=== PATIENT | male | born 1960 | race Caucasian/White ===

== ENCOUNTER 2020-08-14 13:26 | Emergency (ER) | payer MEDICARE ==
[~2020-08-14] VITALS: Ht 180.3 cm; Wt 106.0 kg
[~2020-08-14 13:26] MED LIST: DOCU-131 PO; DULO20CA18 PO; GABA-827 PO; HYDR25CA94 PO; MELA5TAB14 PO; METH-639 PO
[2020-08-14] MEDS ORDERED: DICL75TA3 PO (13:49)
--- NOTE | 2020-08-14 13:53 | NUR ---
PT AMBULATORY TO ROOM FROM TRIAGE. PT CHANGED INTO GOWN, MONITORS IN PLACE. PT DENIES SI/HI AT THIS TIME. PT STATES "I JUST FEEL NOT RIGHT RIGHT NOW."
--- NOTE | 2020-08-14 14:05 | NUR ---
U CONTACTED, CONFIRMED THERE IS A BED WAITING FOR PT. ERP AWARE.
[2020-08-14] MEDS ORDERED: KETOROLAC 30 MG/1 ML ONE (14:08)
[2020-08-14] MEDS ORDERED: ACETAMINOPHEN 325 MG TABLET ONE (14:09)
--- NOTE | 2020-08-14 14:20 | NUR ---
PT AMBULATORY TO BR WITH UPRIGHT STEADY GAIT
[2020-08-14 14:21] LABS: BASOPHILS % (AUTO) 1 % (0-1); EOSINOPHILS % (AUTO) 2 % (1-7); LYMPHOCYTES % (AUTO) 37 % (22-44); MEAN CORPUSCULAR HEMOGLOBIN 30.5 pg (27.5-34.5); MEAN PLATELET VOLUME 6.7 fL (7.4-10.4); MONOCYTES % (AUTO) 6 % (2-9); NEUTROPHILS % (AUTO) 55 % (42-75); PLATELET COUNT 254 x10^3/uL (130-400); RED BLOOD COUNT 5.26 x10^6/uL (4.38-5.82); RED CELL DISTRIBUTION WIDTH 13.5 % (9.4-14.8)
[2020-08-14 14:22] LABS: MD NO
[2020-08-14] MEDS ORDERED: KETOROLAC 30 MG/1 ML IM ONE (14:30)
[2020-08-14] MEDS ORDERED: ACETAMINOPHEN 325 MG TABLET PO ONE (14:30)
[2020-08-14 14:32] LABS: ALANINE AMINOTRANSFERASE 40 U/L (12-78); ALBUMIN 3.9 g/dL (3.4-5.0); ANION GAP 8 mmol/L (5-15); CALCIUM 8.8 mg/dL (8.5-10.1); CHLORIDE 105 mmol/L (98-107); CREATININE 0.92 mg/dL (0.7-1.3)
[2020-08-14 14:34] LABS: ALKALINE PHOSPHATASE 41 U/L (45-117); BILIRUBIN,TOTAL 0.3 mg/dL (0.2-1.0); TOTAL PROTEIN 7.2 g/dL (6.4-8.2)
[2020-08-14 14:35] LABS: SALICYLATE LEVEL < 1.7 mg/dL (2.8-20.0)
[2020-08-14 14:47] LABS: AMPHETAMINE SCREEN, URINE Negative (Negative); BARBITURATE SCREEN, URINE Negative (Negative); BENZODIAZEPINE SCREEN, URINE Positive (Negative); CANNABINOID SCREEN, URINE Negative (Negative); COCAINE SCREEN, URINE Negative (Negative); METHADONE SCREEN, URINE Negative (Negative); OPIATE SCREEN, URINE Negative (Negative)
[2020-08-14 14:49] VITALS: BP 124/74
--- NOTE | 2020-08-14 14:49 | NUR ---
PT LAYING ON EDUIN CALMLY ON HIS PHONE. NADN/VSS. DENIES SI/HI. CALL LIGHT WITHIN REACH. NO NEEDS AT THIS TIME.
--- NOTE | 2020-08-14 15:14 | NUR ---
REPORT GIVEN TO ANAMARIA AT [facility]
[2020-08-14] MEDS ORDERED: DOXE10OR2 PO (15:31)
[2020-08-14] MEDS ORDERED: [UNRECOGNIZED DRUG - CODE] PO (15:32)
[2020-08-14] MEDS ORDERED: HYDR-3565 PO (15:35)
[2020-08-14] MEDS ORDERED: ALPR-585 PO (17:08)
== END 2020-08-14 20:57 | disposition home or self-care (01) ==
LOC: ED 20:54
DX: F32.9 Major depressive disorder, single episode, unspecified (principal); R94.31 Abnormal electrocardiogram [ECG] [EKG]; Z20.822 Contact with and (suspected) exposure to COVID-19
CPT/HCPCS: 36415; 80053; 80299; 80307; 80320; 85025; 87426; 93005; 96372; 99284; J1885; 80329; G0480

== ENCOUNTER 2020-09-06 14:40 | Emergency (ER) | payer MEDICARE ==
[~2020-09-06] VITALS: Ht 180.3 cm; Wt 106.4 kg
[~2020-09-06 14:40] MED LIST changes: +ALPR-585 PO; +DICL75TA3 PO; +DOXE10OR2 PO; +HYDR-3565 PO; +QUET100T PO; +[UNRECOGNIZED DRUG - CODE] PO
--- NOTE | 2020-09-06 14:50 | NUR ---
CALLED PT TO TRIAGE BUT PT ON CELLPHONE & WOULD NOT ANSWER STAFF QUESTIONS, WILL ATTEMPT TRIAGE AGAIN.
[2020-09-06 14:52] VITALS: BP 136/93
--- NOTE | 2020-09-06 15:23 | NUR ---
[facility] AT [facility]
--- NOTE | 2020-09-06 16:50 | NUR ---
Patient given discharge instructions and RX, they have confirmed that they understand the instructions. Patient ambulatory with steady gait.
== END 2020-09-06 16:51 | disposition home or self-care (01) ==
LOC: ED 16:07
DX: F33.9 Major depressive disorder, recurrent, unspecified (principal)
CPT/HCPCS: 99281